=== PATIENT | female | born 1970 | race Caucasian/White ===

== ENCOUNTER 2019-08-21 09:11 | Emergency (ER) | payer BC, OTHER ==
[2019-08-21] MEDS ORDERED: Sodium Chloride 0.9% 1,000 ML IV ONE ×2 (09:56→11:26)
[2019-08-21] MEDS ORDERED: Sodium Chloride 0.9% 1,000 ML IV SCH (10:00)
[2019-08-21] MEDS ORDERED: diphenhydrAMINE 50 MG/ML SDV IVPUSH ONE (10:22)
[2019-08-21] MEDS ORDERED: Ketorolac 30 MG/ML SDV IVPUSH ONE (10:22)
[2019-08-21] MEDS ORDERED: Ondansetron 4 MG/2 ML SDV IVPUSH ONE (10:22)
--- NOTE | 2019-08-21 10:50 | EDM.PDOC ---
ED HPI GENERAL MEDICAL PROBLEM - General Chief Complaint: Headache Stated Complaint: MIGRAINE Time Seen by Provider: 08/21/19 10:21 Source of Information: Reports: Patient History Limitations: Reports: No Limitations - History of Present Illness INITIAL COMMENTS - FREE TEXT/NARRATIVE: Since reporting migraine. The patient states that she gets a migraine about 4 times a year. Usually, she has an aura with visual dots. If she takes an Excedrin Migraine her symptoms usually resolve within an hour. Today, she has had the headache for almost 24 hours. It is of her usual migraine character which is pain in the center of the forehead and behind the eyes accompanied by nausea and photophobia. No focal weakness or new or unusual symptoms. 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 Also been out in the sun and not drinking enough fluids. 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: Musculoskeletal History: Reports: None Neurological History: Reports: None Psychiatric History: Reports: None Endocrine/Metabolic History: Reports: None Hematologic History: Reports: None Immunologic History: Reports: None Oncologic (Cancer) History: Reports: None Dermatologic History: Reports: None - Infectious Disease History Infectious Disease History: Reports: None - Past Surgical History Head Surgeries/Procedures: Reports: None HEENT Surgical History: Reports: None Cardiovascular Surgical History: Reports: None Respiratory Surgical History: Reports: None GI Surgical History: Reports: None Female Surgical History: Reports: None, Hysterectomy Neurological Surgical History: Reports: None Oncologic Surgical History: Reports: None Dermatological Surgical History: Reports: None Social & Family History - Family History Family Medical History: Noncontributory - Tobacco Use Smoking Status *Q: Never Smoker Second Hand Smoke Exposure: No - Caffeine Use Caffeine Use: Reports: Coffee - Recreational Drug Use Recreational Drug Use: No ED ROS GENERAL - Review of Systems Review Of Systems: Comprehensive ROS is negative, except as noted in HPI. - Physical Exam Exam: See Below Exam Limited By: No Limitations General Appearance: Alert, No Apparent Distress Eye Exam: Bilateral Eye: EOMI, PERRL Ears: Normal External Exam Nose: Normal Inspection Throat/Mouth: Normal Inspection Head Exam: Atraumatic, Normocephalic Neck: Normal Inspection Respiratory/Chest: No Respiratory Distress, Lungs Clear, Normal Breath Sounds Cardiovascular: Normal Peripheral Pulses, Regular Rate, Rhythm, No Murmur Neuro Exam (Abbreviated): Alert, Oriented, CN II-XII Intact, No Motor/Sensory Deficits Psychiatric: Normal Affect, Normal Mood Course - Vital Signs Last Recorded V/S: Last Vital Signs Temp 36.6 C 08/21/19 10:29 Pulse 61 08/21/19 10:29 Resp 12 08/21/19 10:29 BP 142/94 H 08/21/19 10:29 Pulse Ox 99 08/21/19 10:29 - Orders/Labs/Meds Meds: Medications Discontinued Medications Generic Name Dose Route Start Last Admin Trade Name Freq PRN Reason Stop Dose Admin Diphenhydramine HCl 50 mg 08/21/19 10:22 08/21/19 10:30 Benadryl IVPUSH 08/21/19 10:23 50 mg ONETIME ONE Administration Sodium Chloride 1,000 mls @ 999 mls/hr 08/21/19 10:00 Normal Saline IV ASDIRECTED MANISH Sodium Chloride 1,000 mls @ 999 mls/hr 08/21/19 09:56 08/21/19 09:57 Normal Saline IV 08/21/19 10:56 999 mls/hr .Bolus ONE Administration Sodium Chloride 1,000 mls @ 999 mls/hr 08/21/19 11:26 08/21/19 11:29 Normal Saline IV 08/21/19 12:26 999 mls/hr STAT ONE Administration Ketorolac Tromethamine 30 mg 08/21/19 10:22 08/21/19 10:30 Toradol IVPUSH 08/21/19 10:23 30 mg ONETIME ONE Administration Lidocaine HCl 5 ml 08/21/19 11:10 08/21/19 11:26 Xylocaine-Mpf 4% INJECT 08/21/19 11:11 Not Given ONETIME ONE Lorazepam 0.5 mg 08/21/19 11:23 08/21/19 11:34 Ativan IVPUSH 08/21/19 11:24 0.5 mg ONETIME ONE Administration Ondansetron HCl 4 mg 08/21/19 10:22 08/21/19 10:30 Zofran IVPUSH 08/21/19 10:23 4 mg ONETIME ONE Administration Prochlorperazine Edisylate 10 mg 08/21/19 11:24 08/21/19 11:35 Compazine IVPUSH 08/21/19 11:25 10 mg ONETIME ONE Administration - Re-Assessments/Exams Free Text/Narrative Re-Assessment/Exam: 08/21/19 12:32 Her headache has resolved although she still feels "sore". No nausea, visual symptoms. Is on going home and going to bed. Departure - Departure Time of Disposition: 12:32 Disposition: Home, Self-Care 01 Condition: Good Clinical Impression: Headache, migraine Qualifiers: Migraine type: with aura - Discharge Information Referrals: Judy Dao NP [Primary Care Provider] - Teo Harrell MD [Physician] - Jen Marion NP [Ordering Only Provider] - Forms: ED Department Discharge Additional Instructions: 1. Follow-up in primary care 2. Set 1-2 tabs every 4-6 hours as needed for headache 3. No driving or operating machinery today Sepsis Event Note (ED) - Evaluation Sepsis Screening Result: No Definite Risk - Focused Exam Vital Signs: Vital Signs Temp Pulse Resp BP Pulse Ox 08/21/19 10:29 36.6 C 61 12 142/94 H 99 08/21/19 09:48 37.1 C 70 16 152/91 H 98
[2019-08-21] MEDS ORDERED: Lidocaine 4% 5 ML Amp INJECT ONE (11:10)
[2019-08-21] MEDS ORDERED: LORazepam 2 MG/ML SDV IVPUSH ONE (11:23)
[2019-08-21] MEDS ORDERED: Prochlorperazine 10 MG/2 ML SDV IVPUSH ONE (11:24)
[2019-08-21 13:00] VITALS: BP 112/69; PULSE 66
== END 2019-08-21 13:01 | disposition home or self-care (01) ==
LOC: MW.ED 09:11
DX: G43.109 Migraine with aura, not intractable, without status migrainosus (principal)
CPT/HCPCS: 96374; 96375; 99283; J0780; J1200; J1885; J2060; J2405; J7030

== ENCOUNTER 2022-08-23 10:56 | Emergency (ER) | payer BC ==
[2022-08-23] MEDS ORDERED: Ondansetron 4 MG Tab.DIS PO ONE (11:32)
[2022-08-23] MEDS ORDERED: LORazepam 1 MG Tab PO ONE (11:32)
[2022-08-23 13:20] VITALS: BP 141/81; PULSE 84
== END 2022-08-23 13:19 | disposition home or self-care (01) ==
LOC: MW.ED 10:56
DX: S06.0X1A Concussion with loss of consciousness of 30 minutes or less, initial encounter (principal); S00.03XA Contusion of scalp, initial encounter; W01.198A Fall on same level from slipping, tripping and stumbling with subsequent striking against other object, initial encounter
CPT/HCPCS: 70450; 99284; A9270; 99283

== ENCOUNTER 2023-11-03 13:45 | Emergency (ER) | payer BC ==
[2023-11-03 14:28] LABS: BASOPHILS ABSOLUTE AUTO 0.04 K/uL (0.00-0.20); BASOPHILS PERCENT AUTO 0.7 % (0.0-1.0); EOSINOPHILS ABSOLUTE AUTO 0.03 K/uL (0.00-0.45); EOSINOPHILS PERCENT AUTO 0.5 % (0.0-6.0); HEMATOCRIT 38.8 % (37.0-47.0); HEMOGLOBIN 13.4 g/dL (12.0-16.0); IMMATURE GRAN ABSOLUTE AUTO 0.02 K/uL (0.00-0.05); IMMATURE GRAN PERCENT AUTO 0.3 % (0.0-0.4); LYMPHOCYTES ABSOLUTE AUTO 1.45 K/uL (1.00-4.80); LYMPHOCYTES PERCENT AUTO 24.1 % (24.0-44.0); MEAN CORPUSCULAR HEMOGLOBIN 33.8 pg (28.0-32.0); MEAN CORPUSCULAR HGB CONC 34.5 g/dL (32.0-36.0); MEAN PLATELET VOLUME 9.5 fL (9.4-12.3); MONOCYTES ABSOLUTE AUTO 0.45 K/uL (0.00-0.80); MONOCYTES PERCENT AUTO 7.5 % (0.0-8.0); NEUTROPHILS ABSOLUTE AUTO 4.02 K/uL (1.80-7.70); NEUTROPHILS PERCENT AUTO 66.9 % (41.0-71.0); PLATELET COUNT,PLT 328 K/uL (150-400); RED BLOOD CELL COUNT 3.96 M/uL (4.10-5.30); WHITE BLOOD CELL COUNT,WBC 6.01 K/uL (3.9-11.3)
[2023-11-03 15:01] LABS: A/G RATIO 1.6 (0.9-1.6); ALANINE AMINOTRANSFERASE,ALT 32 IU/L (14-63); ALBUMIN 4.4 g/dL (3.4-5.0); ALKALINE PHOSPHATASE 76 U/L (46-116); ASPARTATE AMNIOTRANSFERASE,AST 17 IU/L (15-37); BILIRUBIN TOTAL 0.6 mg/dL (0.2-1.0); BLOOD UREA NITROGEN,BUN 10 mg/dL (7.0-18.0); CALCIUM 9.9 mg/dL (8.5-10.1); CARBON DIOXIDE,CO2 28.4 mmol/L (21.0-32.0); CHLORIDE,CL 103 mmol/L (98-107); CREATININE 0.9 mg/dL (0.6-1.0); EST CRCL DRUG DOSING (CG) 71.25 mL/min; GLUCOSE RANDOM 138 mg/dL (74-106); LIPASE 48 U/L (16-77); MAGNESIUM 1.9 mg/dL (1.8-2.4); POTASSIUM,K 3.5 mmol/L (3.5-5.1); PRO B-TYPE NATRIUR PEPT,BNPPRO 32 pg/mL (0-125); PROTEIN TOTAL,TP 7.2 g/dL (6.4-8.2); SODIUM,NA 141 mmol/L (136-145)
[2023-11-03 15:02] LABS: ESTIMATED GFR 76 mL/min (>60)
[2023-11-03 17:15] VITALS: BP 146/95; PULSE 85
== END 2023-11-03 17:14 | disposition home or self-care (01) ==
LOC: MW.ED 13:45
DX: I49.3 Ventricular premature depolarization (principal); M79.602 Pain in left arm; F43.9 Reaction to severe stress, unspecified; R03.0 Elevated blood-pressure reading, without diagnosis of hypertension; Z90.710 Acquired absence of both cervix and uterus
CPT/HCPCS: 36415; 71045; 71045-26; 80053; 83690; 83735; 83880; 84484; 85025; 85379; 93010; 99283; 99285